=== PATIENT | male | born 1980 | race Caucasian/White ===

== ENCOUNTER → 2018-06-23 12:32 | Outpatient (CLI) | payer OTHER, SELFPAY ==
[2018-06-23 13:48] LABS: Absolute Lymphocyte Count 2.55 X10^3/ul (0.83-4.51); Absolute Neutrophil Count 5.2 X10^3/uL (2.0-7.7); Basophil# 0.04 X10^3/uL; Basophil% 0.5 % (0-1); Eosinophil# 0.22 X10^3/uL; Eosinophils% 2.5 % (0-5); Hematocrit 47.8 % (40-54); Hemoglobin 16.3 g/dl (13.0-16.5); Lymphocyte # 2.55 X10^3/ul (4.0); Mean Corp Hgb Conc 34.1 g/gl (32-36); Mean Corpuscular Hgb 31.7 pg (27.0-32.0); Mean Corpuscular Volume 92.8 fL (80-94); Mean Platelet Vol. 10.4 fl (6.2-12.0); Monocyte# 0.74 X10^3/uL; Monocyte% 8.4 % (0-10); Neutrophil # 5.22 X10^3/uL (2.7-7.7); Neutrophil % 59.3 % (47-70); Platelet Count 275 K/mm3 (150-450); RBC Distribution Width CV 12.9 % (11.6-14.6); RBC Distribution Width SD 43.2 fl (35.1-43.9); Red Blood Count 5.15 M/mm3 (4.6-6.2); White Blood Count 8.8 K/mm3 (4.4-11.0)
[2018-06-23 13:52] LABS: POSITIVE COUNT NO; POSITIVE DIFFERENTIAL NO; POSITIVE MORPHOLOGY NO
[2018-06-23 14:06] LABS: AST(SGOT) 10 U/L (15-37); Alanine Aminotransfer ALT/SGPT 28 U/L (16-61); Alkaline Phosphatase 87 U/L (45-117); Anion Gap 10 (5-15); BUN 9 mg/dL (7-18); BUN/Creat Ratio 9.5 RATIO (10-20); Calcium,Total 9.2 mg/dL (8.5-10.1); Chloride 102 mmol/L (98-107); Creatinine, Serum 0.95 mg/dL (0.70-1.30); EST Glomerular Filtration Rate 94 mL/min (>60); Est Glom Filt Rate - Afr Amer 114 mL/min (>60); Globulin 4.2 g/dL (2.2-4.2); Glucose 294 mg/dL (74-106); Potassium 4.4 mmol/L (3.5-5.1); Protein, Total 8.2 g/dL (6.4-8.2); Sodium Level 138 mmol/L (136-145)
[2018-06-26 12:18] LABS: QNTFERON TB Mitogen Value > 10.00 IU/mL (.); QNTFERON TB Nil Value 0.02 IU/mL (.); QNTFERON TB1+ Ag Value 0.02 IU/mL (.); QNTFERON TB2+ Ag Value 0.02 IU/mL (.)
[2018-06-27 18:13] LABS: QNTIFERON TB Positive Criteria Negative (Negative)
== END ==
PROVIDERS: Family Provider Family Medicine; PCP Family Medicine; Referring Provider Physician Assistant; Visit Provider Physician Assistant
DX: L40.0 Psoriasis vulgaris (principal); L40.59 Other psoriatic arthropathy; Z79.899 Other long term (current) drug therapy
CPT/HCPCS: 36415; 80053; 85025; 86480